=== PATIENT | female | born 1975 | race Two or more races ===

== ENCOUNTER 2016-12-16 09:01 | Emergency (ER) | payer MEDICAID ==
[~2016-12-16] VITALS: Ht 162.6 cm; Wt 67.1 kg
[2016-12-16 09:38] VITALS: BP 109/74
== END 2016-12-16 09:48 | disposition home or self-care (01) ==
LOC: ER 09:01
DX: J02.9 Acute pharyngitis, unspecified (principal); Z32.02 Encounter for pregnancy test, result negative
CPT/HCPCS: 81025

== ENCOUNTER 2022-04-20 10:11 | Emergency (ER) | payer MEDICAID ==
[~2022-04-20] VITALS: Ht 162.6 cm; Wt 72.7 kg
[2022-04-20 10:58] VITALS: BP 118/83
[2022-04-20] MEDS ORDERED: cefTRIAXone SOD 1,000 MG VL IM ONE (11:15)
[2022-04-20] MEDS ORDERED: IBUP800T27 PO (11:19)
[2022-04-20] MEDS ORDERED: CLIN300C8 PO (11:19)
== END 2022-04-20 11:46 | disposition home or self-care (01) ==
LOC: ER 10:11
DX: K04.7 Periapical abscess without sinus (principal); F12.90 Cannabis use, unspecified, uncomplicated
CPT/HCPCS: 96372; 99283; J0696